=== PATIENT | female | born 1960 | race Caucasian/White ===

== ENCOUNTER 2022-05-17 14:53 | Outpatient (CLI) | payer OTHER, SELFPAY ==
--- NOTE | 2022-05-17 15:00 | CRLHL7_ITS ---
For Patients: As a result of the Century Cures Act, medical imaging exams and procedure reports are released immediately into your electronic medical record. You may view this report before your referring provider. If you have questions, please contact your health care provider. BILATERAL SCREENING MAMMOGRAM WITH COMPUTER-AIDED DETECTION AND TOMOSYNTHESIS TECHNIQUE: CC and MLO views were obtained. These mammographic images have been obtained using full-field digital technique. These mammographic images were interpreted with the benefit of computer-aided detection. Breast Tomosynthesis was used in this interpretation. COMPARISON FILM: 07/17/21, 07/02/20, 06/15/19 (diagnostic), 08/07/18 FINDINGS: There are scattered areas of fibroglandular density IMPRESSION: There is no radiographic evidence for malignancy. ASSESSMENT: BI-RADS Category 1: Negative RECOMMENDATION: Routine screening mammogram in 1 year. A lay language report of this examination will be provided to the patient. Pavan Casper M.D. Diagnostic Radiologist [email or web address] DAVID/Dictated by: Pavan Casper MD @ 05/18/2022 10:16:00 AM (Electronically Signed)
== END 2022-05-17 14:54 | disposition home or self-care (01) ==
LOC: MAMMO 14:55
PROVIDERS: PCP Internal Medicine; Visit Provider Family Medicine
DX: Z12.31 Encounter for screening mammogram for malignant neoplasm of breast (principal)
CPT/HCPCS: 77063; 77067

== ENCOUNTER 2022-09-15 11:31 | Day surgery (SDC) | payer OTHER, SELFPAY ==
[2022-09-15] VITALS (10 sets, daily range): BP systolic 94–136; BP diastolic 52–85; PULSE 61–77; RESP 12–16; TEMP 36.3–36.9; O2SAT 96–98; BMI 26.2
[2022-09-15] MEDS: SODIUM CHLORIDE 0.9 % (FLUSH) 10 ML SYRINGE IVF (12:25)
[2022-09-15] MEDS: LACTATED RINGERS 1000 ML 1,000 ML 100 ML IV (12:25)
[2022-09-15] MEDS: CEFAZOLIN 2 GM in 0.9 % SODIUM CHLORIDE Mini-bag 100 ML IVPB (13:52)
--- NOTE | 2022-09-15 14:25 | W.ANESCHARGE ---
Anesthesia Charges Start Date/Time Anesthesia Start Date: 09/15/22 Anesthesia Start Time: 13:44 Stop Date/Time Anesthesia Stop Date: 09/15/22 Anesthesia Stop Time: 14:41 Summary Emergency: No
--- NOTE | 2022-09-15 14:27 | PM.ORPRC ---
Procedure Note Date of procedure: 09/15/22 Procedure: PREOPERATIVE DIAGNOSIS: 1. Right knee medial meniscus tear POSTOPERATIVE DIAGNOSIS: 1. Right knee medial meniscus tear PROCEDURE: 1. Right knee arthroscopic partial medial menisectomy SURGEON: Eren Garzon M.D. DETONATOR ASSEMBLER: SASHA Ramirez. Of note, an orthopaedic physician assistant was critical for this case to aid in patient positioning, knee manipulation, instrument exchange, and closure. ANESTHESIA: Spinal EBL: 2ml TOURNIQUET: 25 minutes at 250 torr COMPLICATIONS: None evident INDICATIONS: The patient is a pleasant 62-year-old female who has experienced right knee pain particularly with any twisting or turning. Physical exam was concerning for medial meniscus tear, this was confirmed on MRI. Additionally, attempted nonoperative management has been tried, and failed. Thus, surgery was recommended. FINDINGS: Small apical free edge medial meniscus midbody to posterior horn tearing. Posterior root was intact. ACL and PCL were intact. Lateral meniscus intact including posterior root. Articular cartilage medial and lateral compartments were healthy. Patellofemoral compartment also healthy articular cartilage. No loose bodies evident. No significant effusions. DESCRIPTION OF PROCEDURE: After a thorough discussion of risks, benefits, and alternatives, the patient was brought to the operating room and placed upon the operating table. Induction of anesthesia was undertaken as previously noted. 1 g IV Ancef was administered within 1 hr of incision preoperatively. Appropriate time-out was performed identifying proper patient, site, and procedure. The right lower extremity was prepped and draped in the appropriate sterile fashion using ChloraPrep. The limb was exsanguinated and tourniquet inflated. Anterolateral and anteromedial portals were established with an 11 blade, and a diagnostic arthroscopy was performed. This identified the findings as noted above. Following the diagnostic arthroscopy, a partial medial menisectomy was performed with the combination of basket forceps and a motorized shaver. Following this, the meniscus was re-probed and found to be stable. Approximately < 5% of the overall meniscus required resection. At this stage, the shaver was reinserted into the suprapatellar pouch and all remaining meniscal debris was evacuated. Instruments were removed, excess fluid was drained, and closure performed with 4-0 Monocryl with Steri-Strips. Dressings were applied, the tourniquet deflated, and the patient was awoken from anesthesia and transferred to the PACU in stable condition. PLAN: 1. Weightbear as tolerated operative extremity. Crutch / walker ambulation assistance PRN. 2. Ice, acetominophen and/or ibuprofen, and some Percocet for pain as needed. 3. Knee range of motion and quad sets/straight leg raise regularly 4. Follow up with PA visit in 1-2 weeks for a wound check and possibly to initiate physical therapy.
[2022-09-15] MEDS: ROPIVACAINE 0.5% 30 ML 150 MG INJECTION (14:30)
--- NOTE | 2022-09-15 14:45 | W.ANESCHARGE ---
Anesthesia Charges Start Date/Time Anesthesia Start Date: 09/15/22 Anesthesia Start Time: 13:44 Stop Date/Time Anesthesia Stop Date: 09/15/22 Anesthesia Stop Time: 14:41 Summary Emergency: No
== END 2022-09-15 16:01 | disposition home or self-care (01) ==
PROVIDERS: PCP Internal Medicine; Visit Provider Orthopaedic Surgery Sports Medicine
PROC: (CPT 29870; principal; 2022-09-15 12:45)
DX: S83.241A Other tear of medial meniscus, current injury, right knee, initial encounter (principal); M25.561 Pain in right knee
CPT/HCPCS: 29881; 01400; 97161; J0690; J2250; J2704; J2795; J3010; J7120

== ENCOUNTER 2022-12-13 08:15 | Outpatient (RCR) | payer OTHER, SELFPAY | END 2023-01-14 09:47 | disposition home or self-care (01) | PROVIDERS: PCP Internal Medicine; Visit Provider Physician Assistant Surgical | DX: Z98.890 Other specified postprocedural states (principal); M79.604 Pain in right leg; M25.561 Pain in right knee; Z51.89 Encounter for other specified aftercare | CPT/HCPCS: 97110; 97112; 97140; 97161 ==

== ENCOUNTER 2024-04-13 14:11 | Outpatient (CLI) | payer BC, SELFPAY ==
--- NOTE | 2024-04-13 14:30 | MR_ITS ---
[facility] [address] [facility] [address] Phone:?[phone] Fax:?[phone] Referring Physician Information: Eren Garzon M.D. [address] [facility] [address] Phone:?[phone] Fax:?[phone] Patient:Doreen Barajas D.O.B:?1960 Sex:?Female Phone:?[phone] [facility] MRN:?[id number] Exam Date:?04/13/2024 EXAM: MRI of the RIGHT KNEE, without contrast CLINICAL: Right knee and post pain with history of prior skiing related injury/meniscal tear and prior surgery. Evaluate for meniscal tear and stress fracture. COMPARISONS: Right knee MRI 08/11/2020. X-rays including 04/03/2024. TECHNICAL: Multiplanar multisequence MRI of the right knee was obtained. SEDATION: None. CONTRAST: None. FINDINGS: Ligaments: ACL: Intact and unremarkable. PCL: Intact and unremarkable. MCL: Mild thickening of the proximal LCL consistent with sequelae of prior sprain injury. MCL otherwise appears intact. LCL: Intact and unremarkable. Posterolateral corner: Popliteus, biceps femoris, iliotibial band, and the popliteofibular ligament appear intact. Posteromedial corner: Semimembranosus, pes anserine tendons and posterior oblique ligament appear intact. Extensor mechanism: Patellar tendon: Intact, without tendinopathy. Quadriceps tendon: Intact, without tendinopathy. Retinacula: Medial and lateral retinacula are intact. Fat pads: There is low signal scarring within Hoffa's fat. Patellofemoral joint: Patella: There is focal deep chondral fissure involving the peripheral lateral facet on axial series 4 image 12 similar to prior exam. No new chondral defects. Trochlea: No significant chondromalacia. Medial compartment: Medial meniscus: Combination of postoperative changes and sequelae of prior tearing involving the body segment. No new or increased meniscal tearing and no significant meniscal displacement. Medial cartilage: No significant chondromalacia. Lateral compartment: Lateral meniscus: No evidence of discrete meniscal tear or meniscal displacement. Lateral cartilage: No new chondral defects. Knee joint: Effusion: Very small right knee effusion. Intra-articular bodies:?No convincing bodies identified. Popliteal cyst: None. Bones: No suspicious bone marrow signal alteration or fracture line. IMPRESSION: 1. Combination of postoperative changes and sequelae of prior tearing involving the body segment medial meniscus. No evidence of new or increased meniscal tear. 2. Mild thickening of the proximal MCL consistent with sequelae of prior sprain injury. Ligamentous structures otherwise appear intact. 3. No new fracture or chondral defect. Z Electronically signed on 04/13/2024 5:08:00 PM by Mitch Kevin D.O.
--- NOTE | 2024-04-13 15:15 | MR_ITS ---
[facility] [address] [facility] [address] Phone:?[phone] Fax:?[phone] Referring Physician Information: Eren Garzon M.D. [address] [facility] [address] Phone:?[phone] Fax:?[phone] Patient:Doreen Barajas D.O.B:?1960 Sex:?Female Phone:?[phone] [facility] MRN:?[id number] Exam Date:?04/13/2024 EXAM: MRI OF THE RIGHT LOWER LEG, INCLUDING TIBIA/FIBULA, WITHOUT CONTRAST CLINICAL: Right knee and post pain with history of prior skiing related injury/meniscal tear and prior surgery. Evaluate for meniscal tear and stress fracture. COMPARISONS: Right knee MRI 08/11/2020. X-rays including 04/03/2024. TECHNICAL: MRI sequences of the right leg: Axials: T1, PD FS bilateral Coronals, T1, T2, STIR bilateral Sagittals: STIR SEDATION: None. CONTRAST: None. FINDINGS: Evaluation is limited on the sagittal STIR and axial PD fat-saturated sequences secondary to incomplete fat saturation. Evaluation of the distal tibias/fibulas is also relatively limited on the coronal sequences secondary to artifact. There is no evidence of bone marrow edema or fracture involving the tibias/fibulas as visualized. There is mild faint edema involving the gastrocnemius musculature bilaterally, nonspecific. No additional evidence of significant myotendinous injury as visualized. No evidence of soft tissue mass lesion or drainable fluid collection. IMPRESSION: 1. No evidence of osseous stress related change or fracture as visualized. 2. Minimal faint edema involving the gastrocnemius musculature bilaterally is nonspecific but could reflect minimal strains, disuse, etc. JCZ Electronically signed on 04/13/2024 5:12:00 PM by Mitch Kevin D.O.
== END 2024-04-13 14:12 | disposition home or self-care (01) ==
LOC: MRI 14:12
PROVIDERS: PCP Internal Medicine; Visit Provider Orthopaedic Surgery Sports Medicine
DX: M25.561 Pain in right knee (principal); M23.203 Derangement of unspecified medial meniscus due to old tear or injury, right knee; M17.11 Unilateral primary osteoarthritis, right knee; M84.361A Stress fracture, right tibia, initial encounter for fracture
CPT/HCPCS: 73718; 73721

== ENCOUNTER 2025-01-23 08:28 | Outpatient (CLI) | payer BC, SELFPAY | END 2025-01-23 08:29 | disposition home or self-care (01) | PROVIDERS: PCP Family Medicine; Visit Provider Registered Nurse | DX: Z13.6 Encounter for screening for cardiovascular disorders (principal); Z13.1 Encounter for screening for diabetes mellitus | CPT/HCPCS: 80061; 82947 ==

== ENCOUNTER 2025-04-09 16:08 | Outpatient (CLI) | payer BC, SELFPAY ==
--- OUTSIDE RECORDS SUMMARY | 2025-04-09 16:15 | XMS_ITS | Clinical Summary ---
Author Organization [facility] [facility] [employer] [facility] Address [address] [place] [address] Care Team Providers Care Boatbuilder Apprentice Wood Name Role Phone Louis Teran MD Primary Care Provider [phone] Allergies Active Allergy Reactions Criticality Noted Date Comments Ciprofloxacin Headache 01/19/2018 Sulfa (Sulfonamide Antibiotics) Other - Describe In Comment Field 10/01/2014 migraines Medications acyclovir (ZOVIRAX) 800 mg tabletIndication s:Herpes simplex Take 1 Tablet (800 mg) by mouth 5 times daily. 90 Tablet 1 04/26/2024 Active traZODone (DESYREL) 50 mg tabletIndication s:Primary insomnia Take 1 Tablet (50 mg) by mouth at bedtime. 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 Ulcerative colitis, unspecified 07/17/2007 Overview (08/19/2023): Colonoscopy 08/2023 TA, No UC, repeat in 5 years Herpes simplex with other specified complication s(054.79) 07/17/2007 Immunizations Immunization Administration Dates Next Due COVID-19 vaccine (Moderna 10 0mcg/0.5mL) LEIGHA DAVENPORT 01/02/2022,01/15/2021,12/18/2020 COVID-19 vaccine (Moderna 50 mcg/0.5mL) 12YO+ BIVALENT PF, MDV 09/18/2022 Influenza, IIV4 09/18/2022 Influenza,CCIIV4 PRESERV FREE 06/22/2023, 020 Td (Age >=7 Years) 11/06/1998 Tdap 05/27/2021,12/10/2011 Zoster (Shingrix-RZV, recombinant) 08/07/2020, Family History Medical History Relation Name Comments Cancer Father melanoma Heart Disease Father Heart Attack a t 55, d91 Hyperlipidemia Father Hypertension Father Diabetes Maternal Grandmother Osteoporosis Maternal Grandmother Arthritis Mother rheumatoid arth ritis Hypertension Mother Osteoporosis Mother Stroke Mother Cancer-breast No Family History Relation Name Status Comments Father Maternal Grandmother Mother Social History Tobacco Use Types Packs/Day Years Used Date Smoking Tobacco: Never Smokeless Tobacco: Never Tobacco Cessation:Counseling Given: Yes Alcohol Use Standard Drinks/Week Comments Yes 0 (1 standard drink = 0.6 oz pur e alcohol) occ PHQ-2 Answer Date Recorded PHQ-2 TOTAL SCORE 0 02/25/2023 Social Connections Answer Date Recorded Frequency of Communication with Friends and Fami ly 0 02/25/2023 Financial Resource Strain Answer Date R ecorded Difficulty of Paying Living Expenses 3 02/25/2023 Difficulty of Paying Living Expenses Not on file 02/25/2023 Food Insecurity Answer Date Recorded Worried About Running Out of Food in the Last Ye ar 1 02/25/2023 Transportation Needs Answer Date Record ed Lack of Transportation (Medical) 1 02/25/2023 Housing Stability Answer Date Recorded Unable to Pay for Housing in the Last Year 1 02/25/2023 Comments No Sex and Gender Information Value Date Recorded Sex Assigned at Not on file Legal Sex Female 5:47 AM GLOBAL COMMODITY MANAGER Gender Identity Not on file Sexual Orientation Not on file Obstetrics History Para Term AB IAB SAB Ectopic Multiple Livin g Live Births 4 1 1 3 Date Outcome GA Total Labor Labor/2nd/3rd Weight Sex Type Anes PTL Triny A1 A5 Name Clin IAB Last Filed Vital Signs Vital Sign Reading Time Taken Comments Blood Pressure 109/74 08/30/2024 8:28 AM GLOBAL COMMODITY MANAGER Pulse 88 08/30/2024 8:28 AM GLOBAL COMMODITY MANAGER Temperature 36.7 C (98.1 F) 12/19/2023 8:08 AM GLOBAL COMMODITY MANAGER Respiratory Rate 14 08/16/2023 12:06 PM CDT Oxygen Saturation 97% 08/30/2024 8:28 AM GLOBAL COMMODITY MANAGER Inhaled Oxygen Concentration - - Weight 78.9 kg (174 lb) 08/30/2024 8:28 AM GLOBAL COMMODITY MANAGER Height 169 cm (5' 6.54) 12/19/2023 8:08 AM GLOBAL COMMODITY MANAGER Body Mass Index 27.63 12/19/2023 8:08 AM GLOBAL COMMODITY MANAGER Plan of Treatment Health Maintenance Due Date Last Done Comments Pneumococcal series for age 50+ (1 of 1 - PCV) 2011 Depression screening for age 12+ 02/29/2024 02/28/2023, 02/28/2023, 02/25/2023, Additional history exists COVID-19 vaccine series ( season) 2024 09/18/2022, 01/02/2022, 01/15/2021, Additional history exists BMI (ht and wt on same day) for age 18+ 12/18/2024 12/19/2023, 02/25/2023, 03/18/2022, Additional history exists Influenza Vaccine (Season Ended) 2025 06/22/2023, 09/18/2022, 07/31/2020 Mammogram for age 45-75 07/19/2025 07/19/20 24, 04/04/2023, 07/17/2021, Additional history exists Pap test for age 21-65 05/27/2026 , 05/27/2021, 06/10/2016, Additional history exists Colonoscopy through age 75 08/16/202808/16, 08/16/2023, 08/16/2023, Additional history exists Lipids for age 45-75 12/18/2028 12/19/2023, 02/25/2023, 03/18/2022, Additional history exists Tetanus booster 05/27/2031 05/27/2021, 11/18, 12/10/2011, Additional history exists RSV vaccine for adults or (1 - 1-dose 75+ series) 2036 Zoster (shingles) series for age 50+ Completed 08/07/2020, 05/29/2020 Tdap Completed 05/27/2021, 12/10/2011 Hepatitis C screening for age 18-79 Completed 06/02/2021 HIV for age 15-65 Completed 02/25/2023 Hepatitis B series for 19+ Aged Out N o longer eligible based on patient's age to complete this topic Procedures Procedure Name Priority Date/Time Associated Diagnosis Comments XR MAMMO JEANNIE BILAT SCREEN Routine 07/19/2024 8:17 AM CDT Visit for screening mammogram LIPID PANEL W REFLEX MEASURED LDL Routine 12/19/2023 8:57 AM GLOBAL COMMODITY MANAGER Pure hypercholesterolemia COLONOSCOPY SCREENING Routine 08/16/2023 9:54 AM CDT Ulcerative colitis without complications, unspecified location (HC) LC HIV-1/O/2, 4TH GENERATION Routine 02/25/2023 9:00 AM CDT Encounter for screening for human immunodeficiency virus (HIV) ANTI HCV Routine 06/02/2021 8:04 AM CDT Need for hepatitis C screening test FRONT OFFICE AGENT THIN PREP PAP SCREEN IMAGED Routine 05/27/2021 5:45 PM CDT Screening for cervical cancer from Last 3 Months or Most Recently Relevant to Health Maintenance Results * XR MAMMO JEANNIE BILAT SCREEN (07/19/2024 8:17 AM CDT) Anatomical Region Laterality Modality BREASTS, Breast Left, Breast Right Bilateral Mammography Impressions 07/19/2024 2:27 PM CDT There is no radiographic evidence for malignancy. Recommend annual mammograms. MAMMOGRAM ASSESSMENT: ACR 1 Negative PATIENTS: You will also receive a letter with your examination results in an easy to read format. If you have questions about your results, please contact your referring provider. Narrative 07/19/2024 2:27 PM CDT For Patients: As a result of the Century Cures Act, medical imaging exams and procedure reports are released immediately into your electronic medical record. You may view this report before your referring provider. If you have questions, please contact your health care provider. XR MAMMO JEANNIE BILAT SCREEN [[id number]] CLINICAL HISTORY: This is an asymptomatic 63 y.o. patient. INDICATION FOR EXAM: Mammogram Screening. TECHNIQUE: CC & MLO views were obtained. This study was evaluated with the assistance of Computer-Aided Detection. Breast Tomosynthesis was used in interpretation. [facility] FINDINGS: There are scattered areas of fibroglandular density. There are no dominant masses, suspicious micro calcifications or areas of architectural distortion. Sherice Gregorio MD MAMMO Final Resul t * (ABNORMAL) LIPID PANEL W REFLEX MEASURED LDL (12/19/2023 8:57 AM GLOBAL COMMODITY MANAGER) CHOLESTEROL,TOTAL 241(H) 100 - 199 mg/dL 12/19/2023 5:04 PM GLOBAL COMMODITY MANAGER [facility] Comment: Cholesterol, Total Reference Ranges Desirable <200 mg/dL Borderline 200-239 mg/dL High >=240 mg/dL TRIGLYCERIDES 153(H) <150 mg/dL 12/19/2023 5:04 PM GLOBAL COMMODITY MANAGER [facility] HDL CHOLESTEROL 64 >40 mg/dL 5:04 PM GLOBAL COMMODITY MANAGER [facility] NON-HDL CHOLESTEROL 177(H) <145 mg/dl 12/19/2023 5:04 PM GLOBAL COMMODITY MANAGER [facility] CHOL/HDL RATIO 3.77 <4.50 12/19/2023 5:04 PM GLOBAL COMMODITY MANAGER [facility] LDL CHOLESTEROL 146(H) <=130 mg/dL 12/19/2023 5:04 PM [facility] VLDL CHOLESTEROL 31(H) <=30 mg/dL 12/19/2023 5:04 PM GLOBAL COMMODITY MANAGER [facility] PROVIDER ORDERED STATUS RANDOM 12/19/2023 5:04 PM [facility] Blood BLOOD SPECIMEN / Unknown Venipuncture / Unknown 12/19/2023 8:57 AM GLOBAL COMMODITY MANAGER 12/19/2023 8:58 AM GLOBAL COMMODITY MANAGER Sherice Gregorio MD CHEMISTRY Final Resul t [facility] [address] [place] [address], [place] * COLONOSCOPY (08/16/2023 9:55 AM CDT) 08/16/2023 9:55 AM CDT Narrative Transcriptions Zana Chairez MD - 08/16/2023 11:59 AM CDT Patient Name: Marielle Barajas Procedure Date: 08/16/2023 Gender: Female Date of : 1960 Admit Type: Outpatient Procedure: Colonoscopy Proceduralist: Zana Chairez MD , Sakshi Graham, OPAL(Nurse), Genie Spence (Nurse) Referring MD: Rosa Damon Indications/Pre-Op Diagnosis: High risk colon cancer surveillance:Personal history of colonic polyps, High risk colon cancer surveillance: Ulcerative left sided colitis of 8 (or more) years duration Medications: Fentanyl 100 micrograms IV, Midazolam 4 mgIV Procedure Description: The patient had risks, benefits and alternatives explained to andgave informed consent. The patient had a stable cardiopulmonary status and judged an adequate candidate for conscious sedation. The [id number] was passed through the anus and advanced to 2 cm into the ileum. The colonoscopy was performed without difficulty. The patient tolerated the procedure well. The quality of the bowel preparationwas good. The terminal ileum, ileocecal valve, appendiceal orifice, and rectum were photographed. Complications: No immediate complications. Estimated Blood Loss & Specimen: Estimated blood loss: none. Specimen collected - Yes and sent to Laboratory Findings: The perianal and digital rectal examinations were normal. The terminal ileum appeared normal. Scattered small-mouthed diverticula were found in the sigmoid colonand descending colon. A 6 mm polyp was found in the transverse colon. The polyp wassessile. The polyp was removed with a hot snare. Resection and retrieval were complete. A 3 mm polyp was found in the descending colon. The polyp wassessile. The polyp was removed with a cold biopsy forceps. Resection and retrieval were complete. Two sessile polyps were found in the rectum. The polyps were 4 to 10mm in size. Polypectomy was not attempted due to polyp size (too largeto be excised), very sessile with irregular borders. Biopsies were taken with a cold forceps for histology. These may be hyperplastic.Biopsies taken to rule SSA/DALM lesions. Inflammation was not found based on the endoscopic appearance of the mucosa in the colon. This was graded as Cooper Score 0 (normal orinactive disease). Background biopsies were taken for histology with a cold forceps from the ascending colon, transverse colon, descending colonand rectosigmoid colon. These biopsy specimens from the ascending colon, transverse colon, descending colon and rectosigmoid colon were sentto Pathology. These biopsies were obtained randomly (in a non-targeted manner) for ulcerative colitis surveillance. A moderate amount of liquid stool/ bile was found in the entirecolon, interfering with visualization. Lavage of the area was performedusing a large amount of sterile water, resulting in clearance with good visualization. Impressions/Post-Op Diagnosis: - The examined portion of the ileum was normal. - Diverticulosis in the sigmoid colon and in the descending colon. - One 6 mm polyp in the transverse colon, removed with a hot snare. Resected and retrieved. - One 3 mm polyp in the descending colon, removed with a cold biopsy forceps. Resected and retrieved. - Two 4 to 10 mm polyps in the rectum. Resection not attempted.Biopsied. - Inactive (Cooper Score 0) ulcerative colitis. - Stool in the entire examined colon. - Background biopsies were taken from the ascending colon, transverse colon, descending colon and rectosigmoid colon. Recommendation: - Written discharge instructions were provided to the patient. - Patient has a contact number available for emergencies. The signsand symptoms of potential delayed complications were discussed with the patient. Return to normal activities tomorrow. Written discharge instructions were provided to the patient. - Resume previous diet. - Continue present medications. - Await pathology results. - Repeat colonoscopy is recommended. The colonoscopy date will be determined after pathology results from today's exam become available for review. - For future colonoscopy the patient will require an extended preparation, Peg 8L. If there are any questions, please contact the tourist cabin keeper. Moderate Sedation: A time out was performed before the procedure. Moderate (conscious) sedation was administered by the endoscopy nurse and supervised bythe endoscopist. The following parameters were monitored: oxygensaturation, heart rate, blood pressure, EKG, CO2, respiratory rate, adequacy of pulmonary ventilation and reponse to care. Please refer to the patient's medical record flowsheets and nursing notes for moderate sedation details. Total physician intraservice time was 33 minutes. Zana Chairez MD 08/16/2023 11:59:14 AM This report has been signed electronically. Note Initiated On: 08/16/2023 9:55 AM Procedure Code(s): --- Professional --- 90083, Colonoscopy, flexible; with removalof tumor(s), polyp(s), or other lesion(s) bysnare technique 20130, 59, Colonoscopy, flexible; withbiopsy, single or multiple Diagnosis Code(s): --- Professional --- Z86.010, Personal history of colonicpolyps K51.50, Left sided colitis withoutcomplications D12.3, Benign neoplasm of transverse colon (hepatic flexure or splenic flexure) D12.4, Benign neoplasm of descending colon D12.8, Benign neoplasm of rectum K57.30, Diverticulosis of large intestine without perforation or abscess withoutbleeding CPT copyright 2021 [employer] [employer]. All rights reserved. The codes documented in this report are preliminary and upon service center assistant reviewmay be revised to meet current compliance requirements. Scope In: 11:01:23 AM Scope Withdrawal Time 0 hours 28 minutes 24 seconds Scope Out: 11:38:49 AM us Zana Chairez MD PROCEDURE ORD Final Res ult * LC HIV-1/O/2, 4TH GENERATION (02/25/2023 9:00 AM CDT) Pathologist [facility] HIV Scr 4th Gen Non Reactive Non Reactive 03/01/2023 1:09 PM CDT [facility] Comment: HIV Negative HIV-1/HIV-2 antibodies and HIV-1 p24 antigen were NOT detected. There is no laboratory evidence of HIV infection. Blood BLOOD SPECIMEN / Unknown Venipuncture / Unknown 02/25/2023 9:00 AM CDT 02/25/2023 9:02 AM CDT Narrative [facility] - 03/01/2023 1:09 PM CDT Performed at: [address] [place] [id number] Electric Switch Tester: Dat Linder MD, Phone: [phone] [facility] Final Res ult [facility] [address] [place] [id number], [place] * ANTI HCV (06/02/2021 8:04 AM CDT) Pathologist [facility] HEPATITIS C ANTIBODY Non-React ori Non-React ori 06/02/2021 6:28 PM CDT [facility] Comment:Antibodies to HCV no t detected; does not exclude the possibility of exposure to HCV. Blood BLOOD SPECIMEN / Unknown Venipuncture / Unknown 06/02/2021 8:04 AM CDT 06/02/2021 8:09 AM CDT Ita Licea MD SEND OUTS Final Result [facility] [address] [place] [address], [place] * FRONT OFFICE AGENT THIN PREP PAP SCREEN IMAGED [[id number]] (05/27/2021 5:45 PM CDT) Case Report Gynecologic Cytology Report Case: [id number] Authorizing Provider: Ita Licea MD Collected: 05/27/2021 1745 Ordering Location: [facility] Received: 05/27/2021 1800 Clinic First Screen: Carlos Khanna Specimen: FRONT OFFICE AGENT ThinPrep Vial Screening, Cervical 06/07/2021 2:39 PM CDT [facility] [employer] [facility] INTERPRETATION/ RESULT NEGATIVE FOR INTRAEPITHELIAL LESION OR MALIGNANCY (NIL) (none) 06/07/2021 2:39 PM CDT [facility] at 1439 CDT SPECIMEN ADEQUACY Satisfactory for evaluation Endocervical component present 06/07/2021 2:39 PM CDT [facility] HPV REQUEST HPV and PAP 06/07/2021 2:39 PM CDT [facility] Date of LMP n/a 06/07/2021 2:39 PM CDT [facility] Last Pap Date 06/10/16 06/07/2021 2:39 PM CDT [facility] Last Pap Result NIL 2:39 PM CDT [facility] [employer] [facility] Abnormal Pap or [place] Bx in last 5 years No 06/07/2021 2:39 PM CDT [facility] [employer] [facility] Menstrual Status Ablation 06/07/2021 2:39 PM CDT [facility] [place] Bx Done Today No 06/07/2021 2:39 PM CDT [facility] Additional Information None given 06/07/2021 2:39 PM CDT [facility] Comment: Cytology is screened at [facility], Central Laboratory - [address], [place] [address] and [facility] - [address] [place] [address] and [facility] - [address] [facility] [place] [address] Interpreted at [facility] [employer] [facility], Central Laboratory - [address], [place] [address] Automated Review Successful 06/07/2021 2:39 PM CDT [facility] [employer] LABORATORY-C ENTRAL LABORATORY Comment:Specimen processed s uccessfully by automated policy specialist device, [employer] System, [employer] ANCILLARY TESTING FRONT OFFICE AGENT HPV Ordered, Please see separate report 06/07/2021 2:39 PM CDT [facility] Note The pap test is a screening technique, not a diagnostic procedure. It is used primarily to screen for squamous cancers and precursor lesions. Published studies have shown that it is subject to both false negative and false positive results. The pap test should not be used as the sole means to diagnose or exclude pre-malignant and malignant lesions. 06/07/2021 2:39 PM CDT [facility] Other (Cervical) Non-Blood / Unknown 05/27/2021 5:45 PM CDT 05/27/2021 6:00 PM CDT us Ita Licea MD PATHOLOGY/CYTOLOGY Final Resu lt [facility] [address] [place] [address], [place] from Last 3 Months or Most Recently Relevant to Health Maintenance Insurance [facility] [place] [id number] Care Teams Boatbuilder Apprentice Wood Relationship Specialty Start Date End Date Louis Teran MD [address] [place], [place] [id number] PCP - General 06/04/15
--- OUTSIDE RECORDS SUMMARY | 2025-04-09 16:15 | XMS_ITS | Clinical Summary ---
Author Organization [facility] Address [address] [place] [address] Care Team Providers Care Nursing Informatics Clinical Analyst Name Role Phone No Ref-Primary, Physician Primary Care Provider Allergies Active Allergy Reactions Criticality Noted Date Comments Ciprofloxacin Other (See Comments) 01/19/2018 Sulfa Antibiotics Other (See Comments) 10/01/20 14 migraines Medications traZODone (DESYREL) 50 MG tablet 06/26/2020 Active Social History Tobacco Use Types Packs/Day Years Used Date Smoking Tobacco: Never Smokeless Tobacco: Never Comments Unknown Sex and Gender Information Value Date Recorded Sex Assigned at Not on file Legal Sex Female 3:14 AM 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 Gender Identity Not on file Sexual Orientation Not on file Last Filed Vital Signs Vital Sign Reading Time Taken Comments Blood Pressure 110/68 06/28/2020 11:18 AM CDT Pulse 76 06/28/2020 11:18 AM CDT Temperature 35.9 C (96.7 F) 06/28/2020 11:18 AM CDT Respiratory Rate - - Oxygen Saturation 97% 06/28/2020 11:18 AM CDT Inhaled Oxygen Concentration - - Weight - - Height - - Body Mass Index - - Plan of Treatment Not on file Insurance [employer] [employer] Care Teams Nursing Informatics Clinical Analyst Relationship Specialty Start Date End Date No Ref-Primary, Physician PCP - General 06/28/20
--- NOTE | 2025-04-09 16:20 | MM_ITS ---
Patient: HODAN SU Facility:?[facility] Patient ID:?[id number] Site Patient ID:?[id number]. Site :?1960 Study:?XRay-Breast 3D Ubaldo SCREENING-04/09/2025 5:58:42 PM Ordering Physician:Cornelio Jessica Final Report: INDICATION: BILATERAL SCREENING MAMMOGRAM, ASYMPTOMATIC 64 Y/O FEMALE COMPARISON: 05/17/2022, 07/17/2022, 07/02/2020 TECHNIQUE: Digital mammogram in CC and MLO projections including computer-aided detection (CAD) and tomosynthesis. BREAST COMPOSITION: There are scattered areas of fibroglandular density. FINDINGS: No suspicious findings. ASSESSMENT: BI-RADS 1 Negative RECOMMENDATION: Annual screening mammogram. A lay language report of this examination will be provided to the patient. Dictated by: Pavan Casper MD @ 04/11/2025 10:19:54 Signed by:?Pavan Casper MD @04/11/2025 10:19:54 AM (Electronic Signature)
--- OUTSIDE RECORDS SUMMARY | 2025-04-10 00:49 | XMS_ITS | Clinical Summary ---
Author Organization [facility] Address [address] [place] [id number] Care Team Providers Care Sweatband Decorating Machine Operator Name Role Phone No Ref-Primary, Physician Primary [...] on file Legal Sex Female 3:14 AM BOOKKEEPING MANAGER Gender Identity Not on file Sexual [...] Plan of Treatment Not on file Insurance [employer] Care Teams Sweatband Decorating Machine Operator Relationship Specialty Start Date End Date No Ref-Primary, Physician PCP - General 06/28/20
--- OUTSIDE RECORDS SUMMARY | 2025-04-10 00:49 | XMS_ITS | Clinical Summary ---
Author Organization [facility] Address [address] [place] [address] Care Team Providers Care Magazine Repairer Name Role Phone Louis Teran MD Primary Care Provider Allergies Active Allergy Reactions [...] on file Legal Sex Female 5:47 AM HAND SHOES SEWER Gender Identity Not on file Sexual Orientation Not on file Obstetrics History Para Term AB IAB SAB Ectopic Multiple Livin g Live Births 4 1 1 3 Date Outcome GA Total Labor Labor/2nd/3rd Weight Sex Type Anes PTL Triny A1 A5 Name Clin IAB Last Filed Vital Signs Vital Sign Reading Time Taken Comments Blood Pressure 109/74 08/30/2024 8:28 AM HAND SHOES SEWER Pulse 88 08/30/2024 8:28 AM HAND SHOES SEWER Temperature 36.7 C (98.1 F) 12/19/2023 8:08 AM HAND SHOES SEWER Respiratory Rate 14 08/16/2023 12:06 PM CDT Oxygen Saturation 97% 08/30/2024 8:28 AM HAND SHOES SEWER Inhaled Oxygen Concentration - - Weight 78.9 kg (174 lb) 08/30/2024 8:28 AM HAND SHOES SEWER Height 169 cm (5' 6.54) 12/19/2023 8:08 AM HAND SHOES SEWER Body Mass Index 27.63 12/19/2023 8:08 AM HAND SHOES SEWER Plan of Treatment Health Maintenance Due Date [...] REFLEX MEASURED LDL Routine 12/19/2023 8:57 AM HAND SHOES SEWER Pure hypercholesterolemia COLONOSCOPY SCREENING Routine 08/16/2023 9:54 AM CDT Ulcerative colitis without complications, unspecified location (HC) LC HIV-1/O/2, 4TH GENERATION Routine 02/25/2023 9:00 AM CDT Encounter for screening for human immunodeficiency virus (HIV) ANTI HCV Routine 06/02/2021 8:04 AM CDT Need for hepatitis C screening test LOG OPERATIONS COORDINATOR THIN PREP PAP SCREEN IMAGED Routine 05/27/2021 [...] care provider. XR MAMMO JEANNIE BILAT SCREEN [[id number]] CLINICAL HISTORY: This is an asymptomatic 63 y.o. patient. INDICATION FOR EXAM: Mammogram Screening. TECHNIQUE: CC & MLO views were obtained. This study was evaluated with the assistance of Computer-Aided Detection. Breast Tomosynthesis was used in interpretation. COMPARISON FILM: Yes [facility] FINDINGS: There are scattered areas of fibroglandular density. There are no dominant masses, suspicious micro calcifications or areas of architectural distortion. Sherice Gregorio MD MAMMO Final Resul t * (ABNORMAL) LIPID PANEL W REFLEX MEASURED LDL (12/19/2023 8:57 AM HAND SHOES SEWER) CHOLESTEROL,TOTAL 241(H) 100 - 199 mg/dL 12/19/2023 5:04 PM HAND SHOES SEWER [facility] Comment: Cholesterol, Total Reference Ranges Desirable <200 mg/dL Borderline 200-239 mg/dL High >=240 mg/dL TRIGLYCERIDES 153(H) <150 mg/dL 12/19/2023 5:04 PM HAND SHOES SEWER [facility] HDL CHOLESTEROL 64 >40 mg/dL 5:04 PM HAND SHOES SEWER [facility] NON-HDL CHOLESTEROL 177(H) <145 mg/dl 12/19/2023 5:04 PM HAND SHOES SEWER [facility] CHOL/HDL RATIO 3.77 <4.50 12/19/2023 5:04 PM HAND SHOES SEWER [facility] LDL CHOLESTEROL 146(H) <=130 mg/dL 12/19/2023 5:04 PM [facility] VLDL CHOLESTEROL 31(H) <=30 mg/dL 12/19/2023 5:04 PM HAND SHOES SEWER [facility] PROVIDER ORDERED STATUS RANDOM 12/19/2023 5:04 PM [facility] Blood BLOOD SPECIMEN / Unknown Venipuncture / Unknown 12/19/2023 8:57 AM HAND SHOES SEWER 12/19/2023 8:58 AM HAND SHOES SEWER Sherice Gregorio MD CHEMISTRY Final Resul t [facility] [address] [place] [address], [place] * COLONOSCOPY (08/16/2023 9:55 AM CDT) [...] an adequate candidate for conscious sedation. The [id number] was passed through the anus and advanced [...] there are any questions, please contact the fern picker. Moderate Sedation: A time out was performed [...] 9:55 AM Procedure Code(s): --- Professional --- 84480, Colonoscopy, flexible; with removalof tumor(s), polyp(s), or other lesion(s) bysnare technique 55049, 59, Colonoscopy, flexible; withbiopsy, single or multiple Diagnosis Code(s): --- Professional --- Z86.010, Personal history of colonicpolyps K51.50, Left sided colitis withoutcomplications D12.3, Benign neoplasm of transverse colon (hepatic flexure or splenic flexure) D12.4, Benign neoplasm of descending colon D12.8, Benign neoplasm of rectum K57.30, Diverticulosis of large intestine without perforation or abscess withoutbleeding CPT copyright 2021 [employer]. All rights reserved. The codes documented in this report are preliminary and upon inpatient coder reviewmay be revised to meet current compliance requirements. Scope In: 11:01:23 AM Scope Withdrawal Time 0 hours 28 minutes 24 seconds Scope Out: 11:38:49 AM us Zana Chairez MD PROCEDURE ORD Final Res ult * LC HIV-1/O/2, 4TH GENERATION (02/25/2023 9:00 AM CDT) Pathologist [facility] [place] HIV Scr 4th Gen Non Reactive Non Reactive 03/01/2023 1:[address] [facility] ([facility]) Comment: HIV Negative HIV-1/HIV-2 antibodies and HIV-1 p24 antigen were NOT detected. There is no laboratory evidence of HIV infection. Blood BLOOD SPECIMEN / Unknown Venipuncture / Unknown 02/25/2023 9:00 AM CDT 02/25/2023 9:02 AM CDT Narrative [facility] ([facility]) - 03/01/2023 1:09 PM CDT Performed at: [address] [place] [id number] Antique Refinisher: Dat Linder MD, Phone: [phone] [facility] Final Res ult [facility] ([facility]) [address] [place] [id number], [place] * ANTI HCV (06/02/2021 8:04 AM CDT) Pathologist [facility] [place] HEPATITIS C ANTIBODY Non-React ori Non-React ori 06/02/2021 6:28 PM CDT [facility] Comment:Antibodies to HCV no t detected; does not exclude the possibility of exposure to HCV. Blood BLOOD SPECIMEN / Unknown Venipuncture / Unknown 06/02/2021 8:04 AM CDT 06/02/2021 8:09 AM CDT Ita Licea MD SEND OUTS Final Result [facility] [address] [place] [address], [place] * LOG OPERATIONS COORDINATOR THIN PREP PAP SCREEN IMAGED [[id number]] (05/27/2021 5:45 PM CDT) Case Report Gynecologic Cytology Report Case: [id number] Authorizing Provider: Ita Licea MD Collected: 05/27/2021 1745 Ordering Location: [facility] Received: 05/27/2021 1800 Clinic First Screen: Carlos Khanna Specimen: LOG OPERATIONS COORDINATOR ThinPrep Vial Screening, Cervical 06/07/2021 2:39 PM CDT [facility] INTERPRETATION/ RESULT NEGATIVE FOR INTRAEPITHELIAL LESION OR MALIGNANCY (NIL) (none) 06/07/2021 2:39 PM CDT [facility] at 1439 CDT SPECIMEN ADEQUACY Satisfactory for evaluation Endocervical component present 06/07/2021 2:39 PM CDT [facility] HPV REQUEST HPV and PAP 06/07/2021 2:39 PM CDT [facility] Date of LMP n/a 06/07/2021 2:39 PM CDT [facility] Last Pap Date 06/10/16 06/07/2021 2:39 PM CDT [facility] Last Pap Result NIL 2:39 PM CDT [facility] Abnormal Pap or [place] Bx in last 5 years No 06/07/2021 2:39 PM CDT [facility] Menstrual Status Ablation 06/07/2021 2:39 PM CDT [facility] [place] Bx Done Today No 06/07/2021 2:39 PM CDT [facility] Additional Information None given 06/07/2021 2:39 PM CDT [facility] Comment: Cytology is screened at [facility], Central Laboratory - [address], [place] [address] and [facility] - [address] [place] [address] and [facility] - [address] [facility] [place] [address] Interpreted at [facility] [employer] [facility], Central Laboratory - [address], [place] [address] Automated Review Successful 06/07/2021 2:39 PM CDT [facility] LABORATORY-C ENTRAL LABORATORY Comment:Specimen processed s uccessfully by automated medical staffing coordinator device, [employer], [employer] ANCILLARY TESTING LOG OPERATIONS COORDINATOR HPV Ordered, Please see separate report 06/07/2021 2:39 PM CDT [facility] Note The pap [...] and malignant lesions. 06/07/2021 2:39 PM CDT [facility] Other (Cervical) Non-Blood / Unknown 05/27/2021 5:45 PM CDT 05/27/2021 6:00 PM CDT us Ita Licea MD PATHOLOGY/CYTOLOGY Final Resu lt [facility] [address] [place] [address], [place] from Last 3 Months or Most Recently Relevant to Health Maintenance Insurance [facility] [place] [id number] Care Teams Magazine Repairer Relationship Specialty Start Date End Date Louis Teran MD [address] [place], [place] [phone] PCP - General 06/04/15
== END 2025-04-09 16:09 | disposition home or self-care (01) ==
PROVIDERS: PCP Family Medicine; Visit Provider Registered Nurse
DX: Z12.31 Encounter for screening mammogram for malignant neoplasm of breast (principal)
CPT/HCPCS: 77063; 77067